=== PATIENT | female | born 1940 | race Caucasian/White ===

== ENCOUNTER 2020-07-13 06:57 | Inpatient (IN) | payer MEDICARE ==
[~2020-07-13] VITALS: Ht 154.9 cm; Wt 88.2 kg
[2020-07-13 07:03] VITALS: BP 143/65
[2020-07-13] MEDS ORDERED: NORVASC5 M1 PO (07:06)
[2020-07-13] MEDS ORDERED: CHILDREN'S ASPI81 MG PO (07:07)
[2020-07-13] MEDS ORDERED: CARVEDILOL25 MG PO (07:07)
[2020-07-13] MEDS ORDERED: BENADRYL25 MG PO (07:07)
[2020-07-13] MEDS ORDERED: AUGMENTIN 500-1 EACH PO (07:07)
[2020-07-13] MEDS ORDERED: MIRALAX17 G1 PO (07:07)
[2020-07-13] MEDS ORDERED: MILK OF MA400 MG/5 M PO (07:08)
[2020-07-13] MEDS ORDERED: CULTURELLE KID1 EAC1 PO (07:08)
[2020-07-13] MEDS ORDERED: DEMADEX20 MG PO (07:09)
[2020-07-13] MEDS ORDERED: RAYOS5 MG PO (07:09)
[2020-07-13] MEDS ORDERED: SUPER THERAVIT1 EACH PO (07:09)
[2020-07-13] MEDS ORDERED: CRESTOR10 MG PO (07:09)
[2020-07-13] MEDS ORDERED: KLOR-CON 10 ER10 MEQ PO (07:09)
[2020-07-13] MEDS ORDERED: TRADJENTA5 MG (07:10)
[2020-07-13 07:41] LABS: ABSOLUTE EOSINOPHILS 0.1 thou/uL (0.0-0.7); ABSOLUTE LYMPHOCYTES 0.5 thou/uL (0.8-5.3); ABSOLUTE MONOCYTES 0.5 thou/uL (0.0-1.2); ABSOLUTE NEUTROPHILS 2.7 thou/uL (1.6-8.1); BASOPHILS 1.2 %; EOSINOPHILS 1.9 %; HEMOGLOBIN 8.2 gm/dL (12.0-15.0); LYMPHOCYTES 12.7 %; MCH 32.4 pg (26.0-34.0); MCV 98.4 fL (80.0-100.0); MONOCYTES 12.8 %; MPV 6.9 fl. (7.2-11.1); NUCLEATED RBCS 0 /100WBC; PLATELET COUNT* 174 thou/uL (150-400); POLYS 71.4 %; RBC 2.54 mil/uL (4.20-5.00); RDW-CV 15.4 % (10.5-14.5); WBC 3.8 thou/uL (4.0-11.0)
[2020-07-13 07:43] LABS: CREATININE 2.3 mg/dL (0.6-1.3); POTASSIUM 3.5 mmol/L (3.5-5.1)
[2020-07-13 07:46] LABS: APTT 22.7 Seconds (25.0-31.3); INR 1.2; PROTIME 12.5 Seconds (9.20-11.50)
[2020-07-13 07:53] LABS: ALBUMIN 2.2 g/dL (3.4-5.0); TOTAL BILIRUBIN 0.5 mg/dL (<0.1-1.0); TOTAL PROTEIN 5.8 g/dL (6.4-8.2)
--- NOTE | 2020-07-13 08:35 | NUR ---
SPOKE TO PT'S EMERGENCY CONTACT; DTRGEOVANNA, REGARDING PT'S CARE. DTR GAVE VERBAL CONSENT TO HAVE PT ADMITTED TO [facility] FOR MEDICAL TREATMENT.
[2020-07-13 10:15] VITALS: BP 132/66; BP 137/55
[2020-07-13 16:00] VITALS: BP 121/47
--- NOTE | 2020-07-13 16:40 | NUR ---
RECEIVED REPORT FROM CONNOR SHARIF. PT ARRIVED ON UNIT AROUND 1015. ASSUMED CARE. ADMIT DONE IN CHART. CARDIOLOGY SAW PATIENT. SEE DR BELCHER NOTE. FRANK INTACT. IV INTACT. HEART MONITOR ATTACHED AT AFIB. CONTROLLED. Q2 TURNS. PT LYING IN BED. ACCU CHECKS. BOWEL MOVEMENT TODAY. PT STATED "NO" TO ANY PAIN. VS AND ASSESSMENT CHARTED. PT IS FORGETFUL. ALERT AND ORIENTED AT BEGINNING OF SHIFT WHEN PT ARRIVED. PT NOW SEEMS A LITTLE DISORIENTED, WAS UNSURE OF WHERE SHE WAS. CALL LIGHT WITHIN REACH. WILL CONTINUE TO MONITOR.
[2020-07-13 20:00] VITALS: BP 140/61
[2020-07-13 23:32] VITALS: BP 132/44
[2020-07-14 04:25] VITALS: BP 149/61
[2020-07-14 04:48] LABS: HEMATOCRIT 22.9 % (37.0-47.0); HEMOGLOBIN 7.5 gm/dL (12.0-15.0); MCH 32.7 pg (26.0-34.0); MCHC 32.7 g/dL (28.0-37.0); MCV 100.2 fL (80.0-100.0); MPV 7.6 fl. (7.2-11.1); RBC 2.28 mil/uL (4.20-5.00); RDW-CV 15.5 % (10.5-14.5); WBC 4.3 thou/uL (4.0-11.0)
[2020-07-14 05:21] LABS: CALCIUM 9.1 mg/dL (8.5-10.1); CREATININE 2.1 mg/dL (0.6-1.3); MAGNESIUM 1.7 mg/dL (1.8-2.4); POTASSIUM 3.6 mmol/L (3.5-5.1)
[2020-07-14 08:00] VITALS: BP 141/57
--- NOTE | 2020-07-14 09:59 | NUR ---
CM SPOKE TO THE PT TO COMPLETE CM ASSESSMENT. PT ALERT, BUT FORGETFUL. CM SPOKE TO THE PT'S DTR GEOVANNA TO DISCUSS CM ASSESSMENT. PT'S DTR INFORMS THAT THE PT WAS SKILLED AT [facility] FOR THE PAST 2 MONTHS, BUT IS NOW LTC. PT'S DTR ALSO INFORMS THAT THE PT'S SPOUSE IS ALSO LTC AT [facility] WELL. PT USES A WHEELCHAIR FOR MOBILITY. PT REQUIRES ASSISTANCE WITH FEEDING. PT'S DTR INFORMS THAT THE PLAN IS FOR THE PT TO RETURN TO [facility] AT D/C. CM WILL REMAIN AVAILABLE TO ASSIST AND FOLLOW NEEDED. [facility] PHONE: [phone] FAX: [phone]
[2020-07-14 10:00] LABS: URINE BILIRUBIN NEGATIVE (Negative); URINE BLOOD 3+ (Negative); URINE CLARITY CLEAR; URINE COLOR YELLOW; URINE GLUCOSE-RANDOM NEGATIVE (Negative); URINE KETONES NEGATIVE (Negative); URINE LEUKOCYTES TRACE (Negative); URINE NITRITE NEGATIVE (Negative); URINE PROTEIN 2+ (Negative); URINE SPECIFIC GRAVITY 1.025 (1.005-1.030); URINE UROBILINOGEN 0.2 E.U./dl (0.2-1.0)
[2020-07-14 10:24] LABS: SQUAMOUS 4-10 Moderate /LPF (0-3); URINE RBC >20 Many /HPF (0-2); URINE WBC 0-5 Rare /HPF (0-5)
[2020-07-14 10:25] LABS: BACTERIA 1-9 Few /HPF (None Seen); CRYSTALS None Seen /LPF (None Seen); HYALINE CASTS >10 Many /LPF (None Seen); MUCUS None Seen strn/LPF (None Seen)
--- NOTE | 2020-07-14 10:41 | NUR ---
SPOKE TO DR PATE'S OFFICE IN [place] WHO PERFORMED BIOPSY LAST MONTH. PER DR PATE OK TO REMOVE SUTURES TO CHEST AND UPPER LIP PT MISSED APPT FOR SUTURE REMOVAL LAST WEEK. WILL NOTIFY DR WOODRUFF. PT IN EGD
[2020-07-14 11:22] VITALS: BP 109/41
--- NOTE | 2020-07-14 15:49 | 2DMMODE ---
[place] [address] 2 D/M-MODE ECHOCARDIOGRAM Name: ALESSANDRA RED Room: [facility] ADM IN .R.#: [id number] Admission: 07/13/20 Attend Phys: Azra Sadler MD Discharge: Date of : 44 Date of Service: 07/14/20 1549 Report #: [id number] THIS REPORT FOR: cc: Riley Suarez MD, James MD Holkins,Lopez Lovelace MD [facility] ~ APPROVED REPORT Study performed: 07/14/2020 10:52:58 EXAM: Comprehensive 2D, Doppler, and color-flow Echocardiogram Patient Location: In-Patient Room #: 227 Status: routine BSA: 1.87 HR: 92 bpm BP: 149/61 mmHg Rhythm: Atrial Fibrillation Other Information Study Quality: Good Indications Congestive Heart Failure Atrial Fibrillation Chest Pain 2D Dimensions IVSd: 13.04 (7-11mm) LVOT Diam: 20.42 (18-24mm) LVDd: 37.40 mm PWd: 10.62 (7-11mm) Ascending Ao: 33.59 (22-36mm) LVDs: 22.58 (25-40mm) Aortic Root: 29.14 mm Volumes Left Atrial Volume (Systole) LA ESV Index: 44.30 mL/m2 Aortic Valve AoV Peak Gerardo.: 2.25 m/s AO Peak Gr.: 20.18 mmHg LVOT Max P.54 mmHg AO Mean Gr.: 10.42 mmHg LVOT Mean P.80 mmHg LVOT Max V: 1.18 m/s AO V2 VTI: 45.80 cm LVOT Mean V: 0.77 m/[place] [address] 2 D/M-MODE ECHOCARDIOGRAM Name: ALESSANDRA RED Room: [address] IN .R.#: [id number] Admission: 07/13/20 Attend Phys: Azra Sadler MD Discharge: Date of : 44 Date of Service: 07/14/20 1549 Report #: [id number] CATRACHO (VTI): 1.67 cm2 LVOT V1 VTI: 23.42 cm TDI Lateral E' Gerardo.: 0.09 m/s Pulmonary Valve PV Peak Gerardo.: 1.08 m/s PV Peak Gr.: 4.65 mmHg Tricuspid Valve RAP Estimate: 5.00 mmHg TR Peak Gr.: 36.95 mmHg RVSP: 41.00 mmHg PA Pressure: 41.00 mmHg Left Ventricle The left ventricle is normal size. There is normal LV segmental wall motion. Mild concentric left ventricular hypertrophy. Left ventricular systolic function is normal. The left ventricular ejection fraction is within the normal range. LVEF is 65%. This study is not technically sufficient to allow evaluation of the LV diastolic function due to atrial fibrillation. Right Ventricle The right ventricle is normal size. The right ventricular systolic function is normal. Atria Left atrium is moderately dilated. The right atrium size is normal. Aortic Valve Mild aortic valve sclerosis. No aortic regurgitation is present. No hemodynamically significant valvular aortic stenosis. Mitral Valve There is mitral annular calcification. Trace mitral regurgitation. No evidence of mitral valve stenosis. Tricuspid Valve The tricuspid valve is normal in structure. Mild to moderate tricuspid regurgitation. Moderate pulmonary hypertension. Pulmonic Valve The pulmonary valve is normal in structure. There is no pulmonic valvular regurgitation. [place] [address] 2 D/M-MODE ECHOCARDIOGRAM Name: ALESSANDRA RED Room: [address] IN [facility].#: [id number] Admission: 07/13/20 Attend Phys: Azra Sadler MD Discharge: Date of : 44 Date of Service: 07/14/20 1549 Report #: [id number] The aortic root is normal in size. IVC is normal in size and collapses >50% with inspiration. Pericardium There is no pericardial effusion. Left pleural effusion. <Conclusion> The left ventricle is normal size. Mild concentric left ventricular hypertrophy. Left ventricular systolic function is normal. The left ventricular ejection fraction is within the normal range. LVEF is 65%. This study is not technically sufficient to allow evaluation of the LV diastolic function due to atrial fibrillation. The right ventricle is normal size. Left atrium is moderately dilated. The right atrium size is normal. Mild aortic valve sclerosis. No aortic regurgitation is present. No hemodynamically significant valvular aortic stenosis. There is mitral annular calcification. Trace mitral regurgitation. The tricuspid valve is normal in structure. Mild to moderate tricuspid regurgitation. Moderate pulmonary hypertension. IVC is normal in size and collapses >50% with inspiration. There is no pericardial effusion. There is normal LV segmental wall motion. <ELECTRONICALLY SIGNED> By: Lopez Ashley MD, FACC 07/14/20 1549 1549 1549 Lopez Ashley MD, FACC /INF
[2020-07-14 15:54] VITALS: BP 140/56
--- NOTE | 2020-07-14 17:02 | EKG ---
[place] [address] ELECTROCARDIOGRAM REPORT Name: ALESSANDRA RED Room: [place] [address] ADM IN .R.#: [id number] Admission: 07/13/20 Attend Phys: Azra Sadler MD Discharge: Date of : 44 Date of Service: 07/13/20712 Report #: [id number] THIS REPORT FOR: //name// [facility] ED Test Date: 2020-07-13 Test Time: 07:13:55 Pat Name: ALESSANDRA RED Department: Room: [facility] Gender: F Entry Level Electrician: : 1940 Requested By: Wilver Monroe Order Number: [id number] MD: Lopez Ashley Measurements Intervals [place] Rate: 93 P: [place]: QRS: 57 QRSD: 80 T: -41 QT: 337 QTc: 420 Interpretive Statements Atrial fibrillation Low voltage, precordial leads Borderline repolarization abnormality No previous ECG available for comparison Electronically Signed On 07-14-2020 17:02:24 KETTLE FRY COOK OPERATOR by Lopez Ashley [email or web address] <ELECTRONICALLY SIGNED> By: Lopez Ashley MD, [facility] 07/14/20 1702 2 2 Lopez Ashley MD, [facility] /EPI
--- NOTE | 2020-07-14 17:21 | NUR ---
PT RESTING IN BED THROUGHOUT SHIFT. REPOSTIONED FREQUENTLY WHILE IN BED. FRANK CATH DRAINING CLEAR YELLOW URINE. POOR APPETITE. AFIB ON MONITOR. FAMILY UPDATED ON PT STATUS
[2020-07-14 22:38] VITALS: BP 152/59
[2020-07-15 01:59] VITALS: BP 159/78
[2020-07-15 04:30] LABS: ABSOLUTE BASOPHILS 0.1 thou/uL (0.0-0.2); ABSOLUTE LYMPHOCYTES 0.3 thou/uL (0.8-5.3); ABSOLUTE MONOCYTES 0.3 thou/uL (0.0-1.2); ABSOLUTE NEUTROPHILS 3.9 thou/uL (1.6-8.1); BASOPHILS 1.2 %; EOSINOPHILS 0.8 %; HEMATOCRIT 23.4 % (37.0-47.0); HEMOGLOBIN 7.7 gm/dL (12.0-15.0); LYMPHOCYTES 7.4 %; MCH 32.2 pg (26.0-34.0); MCHC 32.8 g/dL (28.0-37.0); MONOCYTES 5.9 %; MPV 7.5 fl. (7.2-11.1); NUCLEATED RBCS 0 /100WBC; PLATELET COUNT* 201 thou/uL (150-400); POLYS 84.7 %; RBC 2.39 mil/uL (4.20-5.00); RDW-CV 15.6 % (10.5-14.5); WBC 4.6 thou/uL (4.0-11.0)
[2020-07-15 04:37] LABS: CALCIUM 8.9 mg/dL (8.5-10.1); CREATININE 2.2 mg/dL (0.6-1.3); MAGNESIUM 1.6 mg/dL (1.8-2.4); POTASSIUM 3.5 mmol/L (3.5-5.1)
[2020-07-15 04:46] LABS: APTT 26.7 Seconds (25.0-31.3); INR 1.2; PROTIME 12.4 Seconds (9.20-11.50)
[2020-07-15 08:00] VITALS: BP 141/67
[2020-07-15 11:50] VITALS: BP 134/48
--- NOTE | 2020-07-15 14:22 | NUR ---
PT ROUND POC: CARDIO FOLLOWING.
[2020-07-15 16:49] VITALS: BP 139/57
--- NOTE | 2020-07-15 17:56 | NUR ---
A/O TO SELF AND PLACE. HAS A RESTFUL DAY BESIDES SOA. HAS A COUGH.WHEEZING NOTED. BREATHING TX OBTAINED. ALSO LEVAQUIN. DAUGHTERS SIGNED POA DOCUMENTS. VSS. ON 4L/MIN PER NC. APPETITE IS POOR. FRANK CATH IN PLACE. ASSISTED WITH Q 2 HR/PRN TURNS & REPOSITIONS. NO DISTRESS NOTED. DENIES PAIN. AFIB PER MONITOR. WILL CONT TO MONITOR.
[2020-07-16] VITALS: BP 147/68
[2020-07-16 04:00] VITALS: BP 136/60
[2020-07-16 04:25] LABS: HEMOGLOBIN 7.2 gm/dL (12.0-15.0); MCH 32.1 pg (26.0-34.0); MCHC 32.8 g/dL (28.0-37.0); MCV 97.8 fL (80.0-100.0); MPV 7.4 fl. (7.2-11.1); RBC 2.25 mil/uL (4.20-5.00); RDW-CV 15.3 % (10.5-14.5); WBC 3.7 thou/uL (4.0-11.0)
[2020-07-16 04:37] LABS: CALCIUM 9.3 mg/dL (8.5-10.1); CREATININE 2.2 mg/dL (0.6-1.3); POTASSIUM 3.4 mmol/L (3.5-5.1)
[2020-07-16 07:55] VITALS: BP 146/70
--- NOTE | 2020-07-16 09:02 | CON ---
[address] [address] CONSULTATION Name: ALESSANDRA RED Room: [place] [address] ADM IN .R.#: [id number] Admission: 07/13/20 Attend Phys: Azra Sadler MD Discharge: Date of : 44 Report #: [id number] THIS REPORT FOR: cc: Riley Suarez MD, James MD ~ Danielle Marquez MD DATE OF SERVICE: 07/14/2020 NEPHROLOGY CONSULTATION CONSULTING PHYSICIAN: Azra Sadler MD. REASON FOR NEPHROLOGY CONSULTATION: Acute versus chronic kidney disease. REASON FOR ADMISSION: Shortness of breath. HISTORY OF PRESENT ILLNESS: This is a 79-year-old female who has chronic kidney disease, but her baseline creatinine is not known. She has AV fistula in her right arm which the patient states has never been used, type 2 diabetes, cardiomyopathy, hyperlipidemia, hypertension, diastolic heart failure, coronary artery disease and resides in a correction, was brought in from there because of hypoxia and desaturation of 88% on room air, had significant lower extremity edema and chest x-ray showed evidence of congestion bilaterally with likely pneumonia as well as pleural effusions. The patient is not a great historian. She was diagnosed with COVID-19 on 06/18 and this time, her rapid COVID antigen test came back to be negative. She feels a little bit better this morning. She is still needing 4 liters of oxygen by nasal cannula. She was seen by Cardiology and is being diuresed with Lasix IV 40 b.i.d., at the correction, she does take Lasix p.o. once a day along with potassium. She has a Blanca catheter and she has been urinating 750 mL documented overnight. ALLERGIES: FISH OIL. REVIEW OF SYSTEMS: As mentioned in history of present illness: Detailed review of systems difficult because she was not a great historian. FAMILY HISTORY: Noncontributory in this 79-year-old female. SOCIAL HISTORY: Resides in a nursing facility, does not use tobacco, alcohol or drugs. PAST MEDICAL AND SURGICAL HISTORY: Includes diabetes type 2, cardiomyopathy, hyperlipidemia, hypertension, diverticulosis, gout, diastolic heart failure, UTI, coronary artery disease, CKD, muscle weakness, [place] [address] CONSULTATION Name: ALESSANDRA RED Room: [address] IN [facility]#: [id number] Admission: 07/13/20 Attend Phys: Azra Sadler MD Discharge: Date of : 44 Report #: [id number] deficit, difficulty walking, lack of coordination, has been in the correction for the past 3-4 months according to the patient. HOME MEDICATIONS: Include amlodipine, Augmentin, baby aspirin, Benadryl, carvedilol, MiraLax, ____, milk of magnesia, multivitamin, potassium chloride, rosuvastatin, torsemide 20 mg a day, prednisone, linagliptin. PHYSICAL EXAMINATION: VITAL SIGNS: Blood pressure is 141/57, temperature 36.5, pulse rate is 84, respiratory rate is 20, pulse ox is 97% on 3 liters of oxygen by nasal cannula now. GENERAL: The patient is awake and alert and she is oriented x 3. HEAD AND EYES: Atraumatic, normocephalic. Conjunctivae normal. NECK: There is JVD to angle of the mandible. CHEST: Bilateral decreased breath sounds posteriorly. CARDIOVASCULAR: S1, S2 normal. No murmurs. ABDOMEN: Soft and it is obese, nontender. EXTREMITIES: Right arm at least 2+ edema, left arm looks okay and right arm has AV fistula with good bruit and thrill. Lower extremities, there is about 3+ edema bilateral lower extremities. SKIN: Looks dry. NEUROLOGICAL FUNCTION: She is moving all her extremities. PSYCHIATRIC: Mood dubois, she seems to be depressed. LABORATORY DATA: WBC 4.3, hemoglobin 7.5, platelet count 180. Sodium is 147, potassium 3.6, BUN 64, creatinine 2.1 and was 2.3 when she first came in and other labs were reviewed. IMAGING: Chest x-ray was reviewed. ASSESSMENT: 1. Acute kidney injury, but likely chronic kidney disease, her baseline creatinine is not known and she presents with a creatinine of 2.3. UA and renal ultrasound have been ordered. She does look hypovolemic on admission, does take torsemide at home. She does have arteriovenous fistula in right arm, which the patient states was created about couple of years ago, but has never been used. Need to find out her medical records from her outpatient emt i/99. The patient states she is not actively following with emt i/99. 2. Lower extremity swelling, shortness of breath, history of diastolic congestive heart failure, does look like pulmonary vascular congestion bilaterally and is being diuresed by Cardiology. 3. Mild hypernatremia, sodium 147 on admission. 4. Anemia. 5. New onset atrial fibrillation. We will defer to Cardiology. [address] [address] CONSULTATION Name: ALESSANDRA RED Room: [place] [address] ADM IN M.R.#: [id number] Admission: 07/13/20 Attend Phys: Azra Sadler MD Discharge: Date of : 44 Report #: [id number] 6. Recent COVID 2 weeks ago. 7. Type 2 diabetes. We will defer to primary team for management. 8. Morbid obesity. PLAN: 1. Agree with IV Lasix as per Cardiology. We will defer diuresis to Cardiology. 2. Sodium 147, we will follow. 3. Try to obtain her baseline medical records, especially Nephrology records because she has AV fistula in her right arm but the patient states that has never been used. 4. We will check a renal ultrasound and UA. 5. Strict I's and O's. 6. Avoid nephrotoxic agents. 7. Recommend obtaining a duplex of right arm because of significant swelling in that arm. Thank you for this consultation. We will continue to follow with you. Discussed with the patient and the patient's nurse. <ELECTRONICALLY SIGNED> By: Danielle Marquez MD 07/16/2002 1011 1056Ajacey Marquez MD /nt
[2020-07-16 11:43] VITALS: BP 117/39
--- NOTE | 2020-07-16 14:36 | NUR ---
CM INFORMED DURING PRIME ROUNDING OF THE PLAN OF CARE FOR THE PT. CARDIOLOGY FOLLOWING. PT CURRENTLY ON 3L O2. PLAN FOR PT TO RETURN TO RETURN TO [facility] AT D/C. CM [facility] REMAIN AVAILABLE TO [facility] AND FOLLOW AT D/C.
[2020-07-16 16:21] VITALS: BP 143/59
[2020-07-17] VITALS: BP 93/63
[2020-07-17 08:00] VITALS: BP 137/75
--- NOTE | 2020-07-17 11:56 | NUR ---
CM INFORMED DURING PRIME ROUNDING OF THE PLAN OF CARE FOR THE PT. PLAN FOR THE PT TO D/C BACK TO HER LTC BED AT [facility] POSSIBLY TOMORROW. CM SPOKE TO [facility] WITH ADMISSIONS TO INFORM OF THIS AND FAXED UPDATED CLINICAL INFO TO [facility]. PT WILL NEED A RAPID COVID TEST PRIOR TO D/C. PT CURRENTLY ON 2L O2. CM WILL REMAIN AVAILABLE TO ASSIST AND FOLLOW NEEDED.
[2020-07-17 12:00] VITALS: BP 126/62
[2020-07-17 16:00] VITALS: BP 125/58
[2020-07-18] VITALS: BP 129/60
[2020-07-18 04:00] VITALS: BP 115/50
[2020-07-18 04:29] LABS: ABSOLUTE LYMPHOCYTES 0.4 thou/uL (0.8-5.3); ABSOLUTE MONOCYTES 0.3 thou/uL (0.0-1.2); ABSOLUTE NEUTROPHILS 2.9 thou/uL (1.6-8.1); BASOPHILS 0.4 %; EOSINOPHILS 1.2 %; HEMATOCRIT 24.2 % (37.0-47.0); LYMPHOCYTES 9.8 %; MCHC 33.1 g/dL (28.0-37.0); MCV 96.9 fL (80.0-100.0); MONOCYTES 7.9 %; MPV 7.6 fl. (7.2-11.1); NUCLEATED RBCS 0 /100WBC; PLATELET COUNT* 151 thou/uL (150-400); POLYS 80.7 %; RDW-CV 15.2 % (10.5-14.5); WBC 3.6 thou/uL (4.0-11.0)
[2020-07-18 04:45] LABS: CALCIUM 9.5 mg/dL (8.5-10.1); CREATININE 2.2 mg/dL (0.6-1.3); POTASSIUM 4.1 mmol/L (3.5-5.1)
[2020-07-18 08:03] VITALS: BP 150/87
[2020-07-18] MEDS ORDERED: LEVOFLOXACIN750 MG PO (09:55)
[2020-07-18] MEDS ORDERED: HYDRALAZINE 2525 MG PO (09:55)
[2020-07-18] MEDS ORDERED: IMDUR 60 MG TAB60 M1 PO (09:55)
[2020-07-18] MEDS ORDERED: PULMICORT0.25 MG/1 INH (09:55)
[2020-07-18] MEDS ORDERED: NORVASC5 M1 PO (09:55)
[2020-07-18 12:14] VITALS: BP 148/80
--- NOTE | 2020-07-18 13:07 | NUR ---
CM INFORMED DURING PRIME ROUNDING OF THE PLAN OF CARE FOR THE PT. PLAN FOR THE PT TO D/C BACK TO HER LTC BED AT [facility]. CM SPOKE TO THE PT AND HER DTR GEOVANNA TO INFORM OF THIS AND BOTH ARE IN AGREEMENT WITH THE PLAN. CM INFORMED [facility] ADMISSIONS OF THE PT'S D/C AND FAXED PT'S D/C ORDERS AND NEGATIVE RAPID COVID RESULTS. [facility] ARRANGED W/C VAN TRANSPORT FOR THE PT FOR [id number]. RN INFORMED OF THE PT'S TIME OF TRANSPORT AND WHERE TO CALL REPORT. RN IN AGREEMENT. CM WILL REMAIN AVAILABLE TO ASSIST AND FOLLOW NEEDED.
--- NOTE | 2020-07-23 08:06 | CON ---
[address] [address] CONSULTATION Name: ALESSANDRA RED Room: [address] IN M.R.#: [id number] Admission: 07/13/20 Attend Phys: Azra Sadler MD Discharge: 07/18/20 Date of : 44 Report #: [id number] THIS REPORT FOR: cc: Riley Suarez MD, James MD ~ Philip Garcia MD [facility] CARDIOLOGY CONSULTATION HISTORY OF PRESENT ILLNESS: I was asked by Dr. Sadler to see this 79-year-old white female in cardiology consultation for evaluation and treatment of congestive heart failure as well as atrial fibrillation, possibly new. She also has a minimally elevated troponin. The troponin was 0.1. This lady does have acute on chronic kidney injury apparently. She cannot give a good history. She was sent to the Emergency Room from her long term, which is the former [facility] with shortness of breath. She says she has been progressively short of breath over at least a month or possibly more. Additionally, she has anemia, her hemoglobin is 8.1. She has high blood pressure, hypercholesterolemia, onf-znwouxj-hwbljnabx diabetes mellitus. She has recent COVID infection some 14 days ago. She also said to have a cardiomyopathy. Her chest x-ray was read as extensive right lung consolidation opacities and left lower lobe opacity infiltrates, bilateral pleural effusions. Her NT-proBNP is 16,474. I suspect in addition to her heart failure, she has pneumonia and possibly this represents persistent COVID pneumonia. She cannot give a good history. PAST MEDICAL HISTORY: As described above. Additionally, she has a history of diverticulosis, gout, so she is said to have diastolic heart failure, coronary artery disease, cognitive communication defect, difficulty walking, lack of coordination. She does have some chest discomfort that is mostly shortness of breath. She says when she tries to breathe, it is difficult. She does state that nitroglycerin does make it better at times. She has orthopnea and PND as well as edema. She has at least 2+ leg edema, possibly 3. She has not had syncope. Coronary risk factors include the hypercholesterolemia, diabetes and high blood pressure. She has not been a smoker. She does not have peripheral vascular disease or carotid disease. She is unaware of her kidney failure, but she does have kidney failure. Today, her creatinine is 2.3 with a BUN of 63 and her estimated GFR is 21. She is unaware of any previous heart disease. She says there is no family history of heart disease. SOCIAL HISTORY: She is , but does not smoke, drink or use illegal drugs. ALLERGIES: SHE STATES SHE IS ALLERGIC TO AZITHROMYCIN. AN ALLERGY TO FISH OIL LISTED, BUT SHE SAYS SHE DOES NOT TAKE FISH OIL. REVIEW OF SYSTEMS: Positive for weakness, cough, wheezing, palpitations, [place] [address] CONSULTATION Name: ALESSANDRA RED Room: [address] IN [place]#: [id number] Admission: 07/13/20 Attend Phys: Azra Sadler MD Discharge: 07/18/20 Date of : 44 Report #: [id number] discomfort, shortness of breath with exercise, shortness of breath lying down, waking up short of breath, extremity edema, diabetes, jaundice in the past, anemia, bleeding disorder, medical allergies and depression. Otherwise, review of systems is negative for some 30 different complaints in 14 different system categories. Please see our review of systems form. Those categories include central nervous system, general, respiratory, cardiovascular, endocrine, gastrointestinal, genitourinary, hematologic, lymphatic, allergic, immunologic, psychiatric, musculoskeletal, skin, eyes, ears, nose, mouth, and throat. PHYSICAL EXAMINATION: GENERAL: She presents as an elderly, well-developed and apparently well-nourished, but obviously chronically ill-appearing white female, in some mild respiratory distress. VITAL SIGNS: Her pulse was 77, respirations were 24, blood pressure was 140/63, O2 sat was 100 on 2 liters of oxygen. HEENT: Her head was atraumatic. Eyes clear. NECK: Supple. There is jugular venous distention and hepatojugular reflux. Thyroid is not enlarged. LUNGS: Reveal coarse breath sounds diffusely bilaterally with scattered rhonchi and coarse rales. HEART: Revealed normal first and second heart sound. There is no S4, no S3. No murmurs, rubs, thrills, heaves or gallops. PMI was not displaced. The rhythm is irregularly irregular, the rate was approximately 80 when I examined her. ABDOMEN: Soft, flat, nontender. There are no palpable masses, no organomegaly. EXTREMITIES: Revealed no cyanosis or clubbing. There was 2-3+ lower extremity edema. IMPRESSION: 1. Congestive heart failure, possibly of that is chronic with acute exacerbation. She probably has both systolic and diastolic heart failure. 2. Elevated troponin that is minimally elevated, likely related to her kidney disease. 3. Acute kidney injury superimposed on chronic kidney disease. 4. Atrial fibrillation of uncertain duration, possibly new, but also possibly chronic. 5. Pneumonia. 6. Anemia. 7. Recent COVID infection. 8. Essential hypertension. 9. Hypercholesterolemia. 10. Non-insulin dependent diabetes mellitus. 11. Chronic kidney disease. 12. Cardiomyopathy. [facility] [address] [place] [address] CONSULTATION Name: ALESSANDRA RED Room: [address] IN M.R.#: [id number] Admission: 07/13/20 Attend Phys: Arza Sadler MD Discharge: 07/18/20 Date of : 44 Report #: [id number] 13. History of diastolic dysfunction. RECOMMENDATION: I would diurese her. Continue her beta-ashely. Discontinue her calcium channel ashely. I would discontinue her torsemide and give her IV Lasix at least 40 mg b.i.d. and increase it as needed. She will need to be on electrolyte protocol and I would instead of giving her an CARLTON or an ARB, which might be an issue with her renal failure, I would put her on low dose of hydralazine and low dose of isosorbide and titrate it upward as tolerated that will due for her preload and afterload reduction. Thank you very much for asking me to see the patient. If there are any questions, please feel free to contact me. <ELECTRONICALLY SIGNED> By: Philip Garcia MD, [facility] 07/23/20 0806 1230 [id number]. Woody Garcia MD, FACC /nt
== END 2020-07-18 14:15 | DRG 177 ==
LOC: M.ERS 06:57 → M.2W 08:20 → M.TBA-ER 08:20 → M.2W 10:25
PROVIDERS: Emergency Medicine Emergency Medical Services; Internal Medicine; ADMIT Family Medicine; ATTEND Family Medicine
DX: J69.0 Pneumonitis due to inhalation of food and vomit (principal); I21.A1 Myocardial infarction type 2; I50.33 Acute on chronic diastolic (congestive) heart failure; J96.01 Acute respiratory failure with hypoxia; I13.0 Hypertensive heart and chronic kidney disease with heart failure and stage 1 through stage 4 chronic kidney disease, or unspecified chronic kidney disease; N17.9 Acute kidney failure, unspecified; E87.0 Hyperosmolality and hypernatremia; N18.4 Chronic kidney disease, stage 4 (severe); I38 Endocarditis, valve unspecified; N39.0 Urinary tract infection, site not specified; I42.9 Cardiomyopathy, unspecified; Z20.822 Contact with and (suspected) exposure to COVID-19; E78.5 Hyperlipidemia, unspecified; K57.90 Diverticulosis of intestine, part unspecified, without perforation or abscess without bleeding; M10.9 Gout, unspecified; I25.10 Atherosclerotic heart disease of native coronary artery without angina pectoris; E11.22 Type 2 diabetes mellitus with diabetic chronic kidney disease; I48.91 Unspecified atrial fibrillation; E78.00 Pure hypercholesterolemia, unspecified; D64.9 Anemia, unspecified; E66.01 Morbid (severe) obesity due to excess calories; E83.42 Hypomagnesemia; B96.89 Other specified bacterial agents as the cause of diseases classified elsewhere; Z91.09 Other allergy status, other than to drugs and biological substances; Z68.36 Body mass index [BMI] 36.0-36.9, adult; Z79.899 Other long term (current) drug therapy

== ENCOUNTER 2020-07-20 00:11 | Emergency (ER) | payer MEDICARE ==
[~2020-07-20] VITALS: Ht 162.6 cm; Wt 93.0 kg
[~2020-07-20 00:11] MED LIST: AUGMENTIN 500-1 EACH PO; BENADRYL25 MG PO; CARVEDILOL25 MG PO; CHILDREN'S ASPI81 MG PO; CRESTOR10 MG PO; CULTURELLE KID1 EAC1 PO; DEMADEX20 MG PO; HYDRALAZINE 2525 MG PO; IMDUR 60 MG TAB60 M1 PO; KLOR-CON 10 ER10 MEQ PO; LEVOFLOXACIN750 MG PO; MILK OF MA400 MG/5 M PO; MIRALAX17 G1 PO; NORVASC5 M1 PO; PULMICORT0.25 MG/1 INH; RAYOS5 MG PO; SUPER THERAVIT1 EACH PO; TRADJENTA5 MG
[2020-07-20 03:40] VITALS: BP 154/64
--- NOTE | 2020-07-21 11:08 | EKG ---
[place] [address] ELECTROCARDIOGRAM REPORT Name: ALESSANDRA RED Room: [facility]#: [id number] Admission: 07/20/20 Attend Phys: Discharge: 07/20/20 Date of : 44 Date of Service: 07/20/20 0022 Report #: [id number] THIS REPORT FOR: //name// [facility] ED Test Date: 2020-07-20 Test Time: 00:22:42 Pat Name: ALESSANDRA RED Department: Room: Gender: Forming Department End Finder: : 1940 Requested By: Jennifer Sadler Order Number: [id number] MD: Dex Orellana Measurements Intervals [place] Rate: 96 P: 28 [place]: 130 QRS: 71 QRSD: 86 T: -39 QT: 351 QTc: 444 Interpretive Statements atrial fibrillation Anterior infarct, old Borderline repolarization abnormality Compared to ECG 07/13/2020 07:13:55 no change Electronically Signed On 07-21-2020 11:08:40 CERTIFIED RESIDENTIAL MEDICATION AIDE by Dex Orellana [email or web address] <ELECTRONICALLY SIGNED> By: Dex Orellana MD, [facility] 07/21/20 1108 0022 0022 Dex Orellana MD, [facility] /EPI
== END 2020-07-20 03:30 | disposition home or self-care (01) ==
LOC: M.ERS 00:11
DX: R06.00 Dyspnea, unspecified (principal); E78.5 Hyperlipidemia, unspecified; I25.10 Atherosclerotic heart disease of native coronary artery without angina pectoris; I13.0 Hypertensive heart and chronic kidney disease with heart failure and stage 1 through stage 4 chronic kidney disease, or unspecified chronic kidney disease; E11.22 Type 2 diabetes mellitus with diabetic chronic kidney disease; N18.9 Chronic kidney disease, unspecified; I50.30 Unspecified diastolic (congestive) heart failure; Z87.440 Personal history of urinary (tract) infections; Z91.018 Allergy to other foods